=== PATIENT | female | born 1980 | race Caucasian/White ===

== ENCOUNTER 2021-08-09 13:54 | Outpatient (CLI) | payer OTHER | END 2021-08-09 13:55 | disposition home or self-care (01) | LOC: SCSMRI 13:54 | PROVIDERS: ATTEND Registered Nurse | DX: S93.431D Sprain of tibiofibular ligament of right ankle, subsequent encounter (principal); M65.9 Synovitis and tenosynovitis, unspecified ==

== ENCOUNTER 2022-05-18 07:58 | Outpatient (CLI) | payer OTHER | END 2022-05-18 07:59 | disposition home or self-care (01) | LOC: BICMAMMO 07:58 | PROVIDERS: ATTEND Registered Nurse | DX: N63.21 Unspecified lump in the left breast, upper outer quadrant (principal); N60.02 Solitary cyst of left breast | CPT/HCPCS: 77066; G0279 ==

== ENCOUNTER 2023-06-18 12:48 | Outpatient (CLI) | payer OTHER | END 2023-06-18 12:49 | disposition home or self-care (01) | LOC: BICCT 12:48 | PROVIDERS: ATTEND Registered Nurse | DX: E27.8 Other specified disorders of adrenal gland (principal) | CPT/HCPCS: 74170 ==

== ENCOUNTER 2024-06-12 14:02 | Outpatient (CLI) | payer OTHER | END 2024-06-12 14:03 | disposition home or self-care (01) | LOC: CT 14:02 | PROVIDERS: ATTEND Otolaryngology Plastic Surgery within the Head & Neck | DX: G50.1 Atypical facial pain (principal) ==